=== PATIENT | male | born 1980 | race Two or more races ===

== ENCOUNTER 2022-09-15 15:15 | Emergency (ER) | payer BC, MEDICAID ==
[~2022-09-15] VITALS: Ht 175.3 cm; Wt 72.7 kg
[2022-09-15 15:50] VITALS: BP 129/71
== END 2022-09-15 19:16 | disposition left against medical advice (07) ==
LOC: ER 15:15 → EDBD 15:15 → ER 19:16
DX: R51.9 Headache, unspecified (principal); Z53.21 Procedure and treatment not carried out due to patient leaving prior to being seen by health care provider

== ENCOUNTER 2023-03-27 20:27 | Emergency (ER) | payer MEDICAID, OTHER ==
[~2023-03-27] VITALS: Ht 180.3 cm; Wt 75.0 kg
[2023-03-27] MEDS ORDERED: IOHEXOL 350 MG/ML 100ML IJ ONE (20:48)
[2023-03-27 21:18] LABS: Basophils # (auto) 0 10 ^3/uL (0-0.2); Basophils % (auto) 0.6 % (0.0-2.0); Eosinophils # (auto) 0 10 ^3/uL (0-0.8); Eosinophils % (auto) 0.5 % (0.0-7.0); Hematocrit 40.4 % (41.0-53.0); Hemoglobin 14.1 g/dL (13.5-17.5); Lymphocytes # (auto) 1.6 10 ^3/uL (0.4-5.4); Mean Corpuscular Hemoglobin 33.1 pg (28.0-32.0); Mean Corpuscular Hgb Conc. 34.8 g/dL (32.0-36.0); Mean Corpuscular Volume 95.2 fL (80.0-100.0); Monocytes # (auto) 0.4 10 ^3/uL (0-1.3); Monocytes % (auto) 5.3 % (0.0-12.0); Neutrophils # (auto) 5.8 10 ^3/uL (1.6-8.6); Neutrophils % (auto) 73.6 % (37.0-80.0); Nucleated Red Blood Cells % 0.2 %; Red Blood Cells 4.25 10^6/uL (4.5-5.90); Red Cell Distribution Width 13.2 % (11.8-14.3); White Blood Cell 7.9 10^3/uL (4.4-10.8)
[2023-03-27 21:39] LABS: INR 0.96 (0.9-1.15)
[2023-03-27 21:40] LABS: Albumin 3.5 g/dL (3.4-5.0); BUN/Creatinine Ratio 7.8 (10.0-20.0); Potassium 3.4 mmol/L (3.5-5.1)
[2023-03-27 21:42] LABS: Bilirubin, Total 0.2 mg/dL (0.2-1.0); Total Protein 7.5 g/dL (6.4-8.2)
[2023-03-27] MEDS ORDERED: CEPHALEXIN 250 MG CAP PO ONE (22:45)
[2023-03-27] MEDS ORDERED: TETANUS-DIPTH-ACEL PERTUSSIS 0.5ML SYR Tdap IM ONE (22:45)
[2023-03-28] MEDS ORDERED: ONDANSETRON HCL 4 MG/2 ML VIAL IV ONE ×2 (02:00→07:15)
[2023-03-28] MEDS: HYDROmorphone HCL 2 MG/ML VL/or syr IV ONE ×2 (02:03→02:08)
[2023-03-28] MEDS ORDERED: KETOROLAC TROMETH 30 MG/ML 1ML VIAL IV ONE (04:30)
[2023-03-28] MEDS ORDERED: LORazepam MDV 2MG/ML 50 MG in SODIUM CHL 0.9% 25 ML IV ONE (04:30)
[2023-03-28] MEDS: LORazepam 2MG/ML-1ML VIAL IV ONE ×2 (04:46→04:48)
[2023-03-28] MEDS ORDERED: LORazepam 2MG/ML-1ML VIAL IV ONE (05:00)
[2023-03-28] MEDS ORDERED: ALPRAZolam 0.5 MG TAB PO ONE ×2 (05:30→09:00)
[2023-03-28] MEDS ORDERED: HYDROmorphone HCL 2 MG/ML VL/or syr IV ONE (07:15)
[2023-03-28 09:46] VITALS: BP 149/94
== END 2023-03-28 10:07 | disposition short-term general hospital (02) ==
LOC: EDBD 20:27 → EDSEX 20:27 → ER 20:27 → EDUNIT# 20:27 → ER 03-28 10:07
DX: S71.132A Puncture wound without foreign body, left thigh, initial encounter (principal); R07.89 Other chest pain; W34.00XA Accidental discharge from unspecified firearms or gun, initial encounter; Y93.89 Activity, other specified; Y92.89 Other specified places as the place of occurrence of the external cause; Y99.8 Other external cause status
CPT/HCPCS: 36415; 71045; 73706; 80053; 83690; 85025; 85610; 86850; 86900; 86901; 90471; 90715; 96374; 96375; 96376; 99285; J1170; J1885; J2060; J2405; Q9967